=== PATIENT | male | born 1950 | race Hispanic/Latino ===

== ENCOUNTER 2020-09-05 15:23 | Inpatient (IN) | payer MEDICARE ==
[~2020-09-05] VITALS: Ht 190.5 cm; Wt 86.2 kg
[2020-09-05 16:54] LABS: BASOPHILS # (AUTO) 0.1 (0.0-0.1); BASOPHILS % 0.5 % (0.0-1.0); EOSINOPHILS # (AUTO) 0.1 (0.0-0.4); EOSINOPHILS % 0.4 % (0.0-6.0); HEMATOCRIT 41.5 % (38.2-49.6); HEMOGLOBIN 13.3 g/dL (14.0-18.0); LYMPHOCYTES # (AUTO) 0.9 (1.0-3.2); LYMPHOCYTES % 6.5 % (18.0-39.1); MEAN CORPUSCULAR HEMOGLOBIN 27.2 pg (28-32); MEAN CORPUSCULAR VOLUME 84.9 fL (81-99); MONOCYTES # (AUTO) 1.5 (0.2-0.8); MONOCYTES % 11.1 % (4.4-11.3); NEUTROPHILS # (AUTO) 10.7 (2.1-6.9); NEUTROPHILS % 80.4 % (38.7-80.0); PLATELET COUNT 352 x10e3/uL (140-360); RED BLOOD COUNT 4.89 x10e6/uL (4.3-5.7); RED CELL DISTRIBUTION WIDTH 12.5 % (11.7-14.4)
[2020-09-05] MEDS ORDERED: ASPIRIN 81 MG CHEW TAB PO ONE (17:00)
[2020-09-05 17:17] LABS: ALANINE AMINOTRANSFERASE 62 IU/L (0-55); ALBUMIN 2.9 g/dL (3.5-5.0); ALBUMIN/GLOBULIN RATIO 0.6 (0.8-2.0); ALKALINE PHOSPHATASE 71 IU/L (40-150); ANION GAP 14.4 mmol/L (8-16); BLOOD UREA NITROGEN 15 mg/dL (7-26); BUN/CREATININE RATIO 16 (6-25); CARBON DIOXIDE 24 mmol/L (22-29); CHLORIDE 97 mmol/L (98-107); CREATINE KINASE 53 IU/L (30-200); CREATININE, SERUM 0.96 mg/dL (0.72-1.25); EST GLOMERULAR FILTRATION RATE > 60 ML/MIN (60-); GLUCOSE 110 mg/dL (74-118); POTASSIUM 4.4 mmol/L (3.5-5.1); SODIUM 131 mmol/L (136-145)
[2020-09-05] MEDS: ENOXAPARIN INJ 80 MG/0.8 ML SYR SC SCH (19:45)
[2020-09-05] MEDS ORDERED: ENOXAPARIN INJ 80 MG/0.8 ML SYR SC ONE (19:48)
[2020-09-05] MEDS ORDERED: SODIUM CHLORIDE 0.9% 50ML 50 ML ONE (19:50)
[2020-09-05] MEDS ORDERED: IOPAMIDOL 370 MG/ML 200 ML INFUS..BTL INJ ONE (19:50)
[2020-09-05 21:18] LABS: CLARITY,URINE SL CLOUDY (CLEAR); COLOR,URINE AMBER (YELLOW); KETONES,URINE 1+ (NEGATIVE); LEUKOCYTE ESTERASE ,URINE NEGATIVE (NEGATIVE); NITRITE,URINE NEGATIVE (NEGATIVE); PROTEIN,URINE DIPSTICK TRACE (NEGATIVE); URINE UROBILINOGEN 0.2 mg/dL (0.2 - 1)
[2020-09-05 21:29] LABS: BACTERIA,URINE MANY /HPF; EPITHELIAL CELLS,URINE FEW /LPF; MUCUS,URINE MANY (RARE)
[2020-09-05] MEDS ORDERED: SODIUM CHLORIDE 0.9% 1000ML 1,000 ML IV STA (21:44)
[2020-09-05] MEDS ORDERED: CEFTRIAXONE SOD 1 GM/NS 50 ML 50 ML IV ONE ×2 (21:45→21:53)
[2020-09-05] MEDS ORDERED: SODIUM CHLORIDE 0.9% 1000ML 1,000 ML ONE (21:53)
[2020-09-06] VITALS (9 sets, daily range): BP systolic 93–134; BP diastolic 58–90
[2020-09-06] MEDS ORDERED: VANCOMYCIN HCL 1GM/NS 250 ML BAG IV SCH
[2020-09-06] MEDS ORDERED: CEFTRIAXONE SOD 1 GRAM/0.9% SOD CHL 50ML BAG IV SCH
[2020-09-06 05:10] LABS: BASOPHILS # (AUTO) 0.1 (0.0-0.1); BASOPHILS % 0.6 % (0.0-1.0); EOSINOPHILS # (AUTO) 0.1 (0.0-0.4); EOSINOPHILS % 1.4 % (0.0-6.0); HEMATOCRIT 36.7 % (38.2-49.6); HEMOGLOBIN 11.9 g/dL (14.0-18.0); LYMPHOCYTES # (AUTO) 0.9 (1.0-3.2); MEAN CORPUSCULAR HEMOGLOBIN 27.4 pg (28-32); MEAN CORPUSCULAR HGB CONC 32.4 g/dL (31-35); MEAN CORPUSCULAR VOLUME 84.6 fL (81-99); MONOCYTES # (AUTO) 1.4 (0.2-0.8); MONOCYTES % 13.8 % (4.4-11.3); NEUTROPHILS # (AUTO) 7.6 (2.1-6.9); NEUTROPHILS % 74.2 % (38.7-80.0); PLATELET COUNT 312 x10e3/uL (140-360); RED BLOOD COUNT 4.34 x10e6/uL (4.3-5.7); RED CELL DISTRIBUTION WIDTH 12.5 % (11.7-14.4)
[2020-09-06 05:33] LABS: ALANINE AMINOTRANSFERASE 49 IU/L (0-55); ALBUMIN 2.3 g/dL (3.5-5.0); ALBUMIN/GLOBULIN RATIO 0.5 (0.8-2.0); ALKALINE PHOSPHATASE 59 IU/L (40-150); ANION GAP 10.9 mmol/L (8-16); BLOOD UREA NITROGEN 15 mg/dL (7-26); BUN/CREATININE RATIO 19 (6-25); CALCIUM 8.5 mg/dL (8.4-10.2); CARBON DIOXIDE 24 mmol/L (22-29); CHLORIDE 101 mmol/L (98-107); CREATININE, SERUM 0.79 mg/dL (0.72-1.25); EST GLOMERULAR FILTRATION RATE > 60 ML/MIN (60-); GLUCOSE 110 mg/dL (74-118); POTASSIUM 3.9 mmol/L (3.5-5.1); SODIUM 132 mmol/L (136-145)
[2020-09-06] MEDS: ENOXAPARIN INJ 80 MG/0.8 ML SYR SC SCH (08:19)
[2020-09-06] MEDS: AZITHROMYCIN 500MG/NS 250 ML 250 ML IV SCH (08:39)
[2020-09-06] MEDS ORDERED: ENOXAPARIN INJ 80 MG/0.8 ML SYR SC SCH (09:00)
[2020-09-06 09:13] LABS: CREATINE KINASE 41 IU/L (30-200)
[2020-09-06 13:17] LABS: CREATINE KINASE 39 IU/L (30-200)
[2020-09-06] MEDS: ENOXAPARIN SOD INJ 40 MG/0.4 ML SYR SC SCH (20:42)
[2020-09-06] MEDS: CEFTRIAXONE SOD 1 GM/NS 50 ML 50 ML IV SCH (20:42)
[2020-09-07] VITALS (9 sets, daily range): BP systolic 105–121; BP diastolic 61–80
[2020-09-07] MEDS: AZITHROMYCIN 500MG/NS 250 ML 250 ML IV SCH (14:13)
[2020-09-07] MEDS: ENOXAPARIN SOD INJ 40 MG/0.4 ML SYR SC SCH ×2 (14:28→22:18)
[2020-09-07] MEDS: CEFTRIAXONE SOD 1 GM/NS 50 ML 50 ML IV SCH (22:19)
[2020-09-08] VITALS (10 sets, daily range): BP systolic 90–127; BP diastolic 62–85
[2020-09-08] MEDS: AZITHROMYCIN 500MG/NS 250 ML 250 ML IV SCH (09:24)
[2020-09-08] MEDS: ENOXAPARIN SOD INJ 40 MG/0.4 ML SYR SC SCH ×2 (09:24→21:00)
[2020-09-08] MEDS: CEFTRIAXONE SOD 1 GM/NS 50 ML 50 ML IV SCH (22:00)
[2020-09-08] MEDS ORDERED: SODIUM CHLORIDE 0.9% 500ML 500 ML ONE (22:27)
[2020-09-09] VITALS (7 sets, daily range): BP systolic 96–137; BP diastolic 61–90
[2020-09-09] MEDS: ENOXAPARIN SOD INJ 40 MG/0.4 ML SYR SC SCH (09:40)
[2020-09-09] MEDS: AZITHROMYCIN 500MG/NS 250 ML 250 ML IV SCH (09:40)
[2020-09-09] MEDS ORDERED: AZITHROMYCIN250 MG PO (17:51)
[2020-09-09] MEDS ORDERED: MEDROL8 MG PO (17:56)
[2020-09-10] MEDS ORDERED: AZITHROMYCIN 250 MG TAB PO SCH (09:00)
== END 2020-09-09 19:25 | disposition home or self-care (01) | DRG 195 ==
LOC: ER 16:10 → ERHOLD 09-06 00:07 → IMCU 09-06 00:11 → MED/SURG3 09-08 20:36
PROVIDERS: ADMIT Internal Medicine; ATTEND Internal Medicine
DX: J15.9 Unspecified bacterial pneumonia (principal); E88.09 Other disorders of plasma-protein metabolism, not elsewhere classified; D50.0 Iron deficiency anemia secondary to blood loss (chronic); Z20.828 Contact with and (suspected) exposure to other viral communicable diseases; Z87.891 Personal history of nicotine dependence; M06.9 Rheumatoid arthritis, unspecified
CPT/HCPCS: 36415; 71045; 71260; 80053; 81001; 82550; 82553; 83605; 83880; 84145; 84484; 85025; 85379; 86021; 86039; 86140; 86431; 86663; 86664; 86665; 86738; 86777; 86778; 87040; 87400; 87449; 93005; 99284; J0456; J0696; J1650; J3370; J7030; J7040; Q9967; U0002

== ENCOUNTER 2020-09-26 13:57 | Inpatient (IN) | payer MEDICARE ==
[~2020-09-26] VITALS: Ht 195.6 cm; Wt 95.7 kg
[~2020-09-26 13:57] MED LIST: AZITHROMYCIN250 MG PO; ETOMIDATE 2 MG/ML 10 ML INJ IV ONE; MEDROL8 MG PO; MIDAZOLAM HCL 2 MG/2 ML VIAL ONE; SUCCINYLCHOLINE CHLORIDE 20 MG/ML 10ML VIAL ONE; VECURONIUM BROMIDE FOR INJ 20 MG VIAL ONE; WATER STERILE 10 ML VIAL ONE
[2020-09-26 14:55] LABS: BASOPHILS # (AUTO) 0.1 (0.0-0.1); BASOPHILS % 0.4 % (0.0-1.0); EOSINOPHILS # (AUTO) 0.1 (0.0-0.4); EOSINOPHILS % 0.3 % (0.0-6.0); HEMATOCRIT 39.3 % (38.2-49.6); HEMOGLOBIN 12.5 g/dL (14.0-18.0); LYMPHOCYTES # (AUTO) 1.3 (1.0-3.2); LYMPHOCYTES % 7.3 % (18.0-39.1); MEAN CORPUSCULAR HEMOGLOBIN 26.4 pg (28-32); MEAN CORPUSCULAR HGB CONC 31.8 g/dL (31-35); MEAN CORPUSCULAR VOLUME 83.1 fL (81-99); MONOCYTES # (AUTO) 1.6 (0.2-0.8); MONOCYTES % 8.7 % (4.4-11.3); NEUTROPHILS # (AUTO) 14.5 (2.1-6.9); NEUTROPHILS % 80.7 % (38.7-80.0); PLATELET COUNT 351 x10e3/uL (140-360); RED BLOOD COUNT 4.73 x10e6/uL (4.3-5.7); RED CELL DISTRIBUTION WIDTH 14.1 % (11.7-14.4)
[2020-09-26 15:13] LABS: ALANINE AMINOTRANSFERASE 96 IU/L (0-55); ALBUMIN 2.2 g/dL (3.5-5.0); ALBUMIN/GLOBULIN RATIO 0.5 (0.8-2.0); ALKALINE PHOSPHATASE 146 IU/L (40-150); BLOOD UREA NITROGEN 27 mg/dL (7-26); BUN/CREATININE RATIO 36 (6-25); CALCIUM 9.2 mg/dL (8.4-10.2); CARBON DIOXIDE 21 mmol/L (22-29); CHLORIDE 102 mmol/L (98-107); CREATININE, SERUM 0.75 mg/dL (0.72-1.25); EST GLOMERULAR FILTRATION RATE > 60 ML/MIN (60-); GLUCOSE 129 mg/dL (74-118); SODIUM 134 mmol/L (136-145)
[2020-09-26] MEDS ORDERED: IOPAMIDOL 370 MG/ML 200 ML INFUS..BTL INJ ONE (17:20)
[2020-09-26] MEDS ORDERED: SODIUM CHLORIDE 0.9% 50ML 50 ML ONE (17:20)
[2020-09-26] MEDS ORDERED: VANCOMYCIN HCL 1GM/NS 250 ML BAG IV SCH (18:15)
[2020-09-26] MEDS ORDERED: AZITHROMYCIN 500MG/SOD CHL 0.9% 250ML BAG IV SCH (18:15)
[2020-09-26] MEDS ORDERED: CEFTRIAXONE SOD 1 GRAM/0.9% SOD CHL 50ML BAG IV SCH (18:15)
[2020-09-26] MEDS ORDERED: SODIUM CHLORIDE FLUSH 10 ML SYR INJ PRN (18:15)
[2020-09-26] MEDS ORDERED: CEFTRIAXONE SOD 1 GM/NS 50 ML 50 ML IV SCH (18:30)
[2020-09-26] MEDS: ALBUTEROL SULF 0.083% NEB SOLN 3 ML NEB NEB SCH (19:00)
[2020-09-26] MEDS: IPRATROPIUM BROMIDE 0.02% 2.5 ML NEB NEB SCH (19:00)
[2020-09-26] MEDS: AZITHROMYCIN 500MG/NS 250 ML 250 ML IV SCH (19:05)
[2020-09-26] MEDS: VANCOMYCIN 1GM/NS 250 ML 250 ML IV SCH (20:22)
[2020-09-27] MEDS: ALBUTEROL SULF 0.083% NEB SOLN 3 ML NEB NEB SCH ×7 (01:15→23:15)
[2020-09-27] MEDS: IPRATROPIUM BROMIDE 0.02% 2.5 ML NEB NEB SCH ×4 (01:15→18:30)
[2020-09-27 05:54] LABS: BASOPHILS # (AUTO) 0.1 (0.0-0.1); BASOPHILS % 0.3 % (0.0-1.0); EOSINOPHILS # (AUTO) 0.1 (0.0-0.4); EOSINOPHILS % 0.3 % (0.0-6.0); HEMATOCRIT 39.7 % (38.2-49.6); HEMOGLOBIN 12.6 g/dL (14.0-18.0); LYMPHOCYTES # (AUTO) 1.1 (1.0-3.2); LYMPHOCYTES % 6.3 % (18.0-39.1); MEAN CORPUSCULAR HEMOGLOBIN 26.4 pg (28-32); MEAN CORPUSCULAR HGB CONC 31.7 g/dL (31-35); MEAN CORPUSCULAR VOLUME 83.1 fL (81-99); MONOCYTES # (AUTO) 1.9 (0.2-0.8); MONOCYTES % 10.7 % (4.4-11.3); NEUTROPHILS # (AUTO) 14.3 (2.1-6.9); NEUTROPHILS % 80.6 % (38.7-80.0); PLATELET COUNT 324 x10e3/uL (140-360); RED BLOOD COUNT 4.78 x10e6/uL (4.3-5.7); RED CELL DISTRIBUTION WIDTH 14.3 % (11.7-14.4)
[2020-09-27 06:31] LABS: ALANINE AMINOTRANSFERASE 81 IU/L (0-55); ALBUMIN 1.9 g/dL (3.5-5.0); ALBUMIN/GLOBULIN RATIO 0.4 (0.8-2.0); ALKALINE PHOSPHATASE 148 IU/L (40-150); ANION GAP 14.4 mmol/L (8-16); BLOOD UREA NITROGEN 18 mg/dL (7-26); BUN/CREATININE RATIO 26 (6-25); CALCIUM 8.8 mg/dL (8.4-10.2); CARBON DIOXIDE 21 mmol/L (22-29); CHLORIDE 100 mmol/L (98-107); CREATININE, SERUM 0.69 mg/dL (0.72-1.25); EST GLOMERULAR FILTRATION RATE > 60 ML/MIN (60-); GLUCOSE 97 mg/dL (74-118); MAGNESIUM 1.9 MG/DL (1.3-2.1); POTASSIUM 4.4 mmol/L (3.5-5.1); SODIUM 131 mmol/L (136-145)
[2020-09-27 06:57] LABS: CREATINE KINASE MB 0.7 ng/mL (0-5.0)
[2020-09-27 10:30] LABS: CREATINE KINASE MB 0.6 ng/mL (0-5.0)
[2020-09-27] MEDS: CEFEPIME 2 GM/NS 0.9% 100 ML 100 ML IV SCH ×2 (11:10→23:00)
[2020-09-27 13:21] VITALS: BP 118/70
[2020-09-27 13:29] VITALS: BP 118/70
[2020-09-27 13:30] VITALS: BP 118/70
[2020-09-27] MEDS ORDERED: PREDNISONE20 MG PO (14:31)
[2020-09-27 16:41] VITALS: BP 117/66
[2020-09-27] MEDS ORDERED: SODIUM CHLORIDE 0.9% 250ML 250 ML ONE (18:13)
[2020-09-27] MEDS: AZITHROMYCIN 500MG/NS 250 ML 250 ML IV SCH (18:19)
[2020-09-27] MEDS ORDERED: SODIUM CHLORIDE 0.9% 500ML 500 ML IV ONE (18:30)
[2020-09-27 20:00] VITALS: BP 112/67
[2020-09-27] MEDS: VANCOMYCIN 1GM/NS 250 ML 250 ML IV SCH (21:33)
[2020-09-28] VITALS (7 sets, daily range): BP systolic 97–117; BP diastolic 54–70
[2020-09-28] MEDS: IPRATROPIUM BROMIDE 0.02% 2.5 ML NEB NEB SCH ×4 (03:15→20:25)
[2020-09-28] MEDS: ALBUTEROL SULF 0.083% NEB SOLN 3 ML NEB NEB SCH ×6 (03:15→23:20)
[2020-09-28 06:20] LABS: BASOPHILS % 0.2 % (0.0-1.0); EOSINOPHILS % 0.2 % (0.0-6.0); HEMATOCRIT 35.3 % (38.2-49.6); HEMOGLOBIN 11.4 g/dL (14.0-18.0); LYMPHOCYTES % 5.9 % (18.0-39.1); MEAN CORPUSCULAR HGB CONC 32.3 g/dL (31-35); MEAN CORPUSCULAR VOLUME 83.6 fL (81-99); MONOCYTES # (AUTO) 1.8 (0.2-0.8); NEUTROPHILS # (AUTO) 13.4 (2.1-6.9); NEUTROPHILS % 81.1 % (38.7-80.0); PLATELET COUNT 268 x10e3/uL (140-360); RED BLOOD COUNT 4.22 x10e6/uL (4.3-5.7); RED CELL DISTRIBUTION WIDTH 14.3 % (11.7-14.4)
[2020-09-28 06:28] LABS: INR 1.13; PROTHROMBIN TIME 15.1 seconds (11.9-14.5)
[2020-09-28 06:29] LABS: PARTIAL THROMBOPLASTIN TIME 44.5 seconds (23.8-35.5)
[2020-09-28 06:31] LABS: CALCIUM IONIZED 1.1 mmol/L (1.09-1.30)
[2020-09-28 06:52] LABS: ALANINE AMINOTRANSFERASE 56 IU/L (0-55); ALBUMIN 1.7 g/dL (3.5-5.0); ALBUMIN/GLOBULIN RATIO 0.4 (0.8-2.0); ALKALINE PHOSPHATASE 135 IU/L (40-150); ANION GAP 13.2 mmol/L (8-16); BLOOD UREA NITROGEN 17 mg/dL (7-26); BUN/CREATININE RATIO 24 (6-25); CALCIUM 8.4 mg/dL (8.4-10.2); CARBON DIOXIDE 23 mmol/L (22-29); CHLORIDE 101 mmol/L (98-107); CREATININE, SERUM 0.71 mg/dL (0.72-1.25); EST GLOMERULAR FILTRATION RATE > 60 ML/MIN (60-); GLUCOSE 92 mg/dL (74-118); MAGNESIUM 1.9 MG/DL (1.3-2.1); POTASSIUM 4.2 mmol/L (3.5-5.1); SODIUM 133 mmol/L (136-145)
[2020-09-28] MEDS ORDERED: LIDOCAINE HCL 4% 50 ML BTL ONE (09:25)
[2020-09-28] MEDS: CEFEPIME 2 GM/NS 0.9% 100 ML 100 ML IV SCH ×2 (11:00→23:45)
[2020-09-28] MEDS ORDERED: MIDAZOLAM HCL 2 MG/2 ML VIAL ONE (12:56)
[2020-09-28] MEDS ORDERED: FENTANYL CITRATE/PF 100MCG/2 ML INJ ONE (12:56)
[2020-09-28] MEDS ORDERED: SODIUM CHLORIDE 0.9% 1000ML 1,000 ML IV SCH (13:00)
[2020-09-28] MEDS ORDERED: PROPOFOL IV EMULSION 10 MG/ML 20 ML VIAL ONE (14:20)
[2020-09-28] MEDS ORDERED: LIDOCAINE HCL 2% LOCAL INJ 5 ML SDV VIAL INJ ONE (14:20)
[2020-09-28] MEDS: AZITHROMYCIN 500MG/NS 250 ML 250 ML IV SCH (17:40)
[2020-09-28] MEDS: VANCOMYCIN 1GM/NS 250 ML 250 ML IV SCH (20:34)
[2020-09-28] MEDS: ACETAMINOPHEN 325 MG TAB PO PRN (23:50)
[2020-09-29] VITALS (8 sets, daily range): BP systolic 94–133; BP diastolic 58–72
[2020-09-29] MEDS: IPRATROPIUM BROMIDE 0.02% 2.5 ML NEB NEB SCH ×4 (01:00→19:35)
[2020-09-29] MEDS: ALBUTEROL SULF 0.083% NEB SOLN 3 ML NEB NEB SCH ×5 (03:00→19:35)
[2020-09-29 06:32] LABS: BASOPHILS % 0.3 % (0.0-1.0); EOSINOPHILS # (AUTO) 0.1 (0.0-0.4); EOSINOPHILS % 0.3 % (0.0-6.0); HEMATOCRIT 35.6 % (38.2-49.6); HEMOGLOBIN 11.1 g/dL (14.0-18.0); LYMPHOCYTES % 6.4 % (18.0-39.1); MEAN CORPUSCULAR HEMOGLOBIN 26.4 pg (28-32); MEAN CORPUSCULAR HGB CONC 31.2 g/dL (31-35); MEAN CORPUSCULAR VOLUME 84.8 fL (81-99); MONOCYTES # (AUTO) 1.6 (0.2-0.8); MONOCYTES % 10.3 % (4.4-11.3); NEUTROPHILS # (AUTO) 12.6 (2.1-6.9); PLATELET COUNT 239 x10e3/uL (140-360); RED CELL DISTRIBUTION WIDTH 14.5 % (11.7-14.4)
[2020-09-29 06:43] LABS: CALCIUM IONIZED 1.1 mmol/L (1.09-1.30)
[2020-09-29 06:52] LABS: ALANINE AMINOTRANSFERASE 54 IU/L (0-55); ALBUMIN 1.6 g/dL (3.5-5.0); ALBUMIN/GLOBULIN RATIO 0.4 (0.8-2.0); ALKALINE PHOSPHATASE 144 IU/L (40-150); ANION GAP 11.9 mmol/L (8-16); BLOOD UREA NITROGEN 16 mg/dL (7-26); BUN/CREATININE RATIO 24 (6-25); CALCIUM 8.3 mg/dL (8.4-10.2); CARBON DIOXIDE 23 mmol/L (22-29); CHLORIDE 105 mmol/L (98-107); CREATININE, SERUM 0.66 mg/dL (0.72-1.25); EST GLOMERULAR FILTRATION RATE > 60 ML/MIN (60-); GLUCOSE 104 mg/dL (74-118); POTASSIUM 3.9 mmol/L (3.5-5.1); SODIUM 136 mmol/L (136-145)
[2020-09-29] MEDS ORDERED: SODIUM CHLORIDE 0.9% 250ML 250 ML ONE (10:14)
[2020-09-29] MEDS: CEFEPIME 2 GM/NS 0.9% 100 ML 100 ML IV SCH ×2 (10:22→22:51)
[2020-09-29] MEDS ORDERED: SODIUM CHLORIDE 0.9% 1000ML 1,000 ML IV ONE (18:00)
[2020-09-29] MEDS: ACETAMINOPHEN 325 MG TAB PO PRN ×2 (18:10→22:51)
[2020-09-29] MEDS: VANCOMYCIN 1GM/NS 250 ML 250 ML IV SCH (21:19)
[2020-09-29] MEDS: SODIUM CHLORIDE 0.9% 1000ML 1,000 ML IV SCH (21:20)
[2020-09-30] VITALS (7 sets, daily range): BP systolic 111–136; BP diastolic 68–77
[2020-09-30] MEDS: ALBUTEROL SULF 0.083% NEB SOLN 3 ML NEB NEB SCH ×7 (00:05→23:55)
[2020-09-30] MEDS: IPRATROPIUM BROMIDE 0.02% 2.5 ML NEB NEB SCH ×5 (00:05→23:55)
[2020-09-30] MEDS: SODIUM CHLORIDE 0.9% 1000ML 1,000 ML IV SCH ×2 (04:50→14:46)
[2020-09-30 05:32] LABS: BASOPHILS % 0.3 % (0.0-1.0); EOSINOPHILS # (AUTO) 0.1 (0.0-0.4); HEMATOCRIT 33.5 % (38.2-49.6); HEMOGLOBIN 10.4 g/dL (14.0-18.0); LYMPHOCYTES # (AUTO) 0.7 (1.0-3.2); LYMPHOCYTES % 4.8 % (18.0-39.1); MEAN CORPUSCULAR HEMOGLOBIN 26.2 pg (28-32); MEAN CORPUSCULAR VOLUME 84.4 fL (81-99); MONOCYTES # (AUTO) 1.2 (0.2-0.8); MONOCYTES % 9.2 % (4.4-11.3); NEUTROPHILS # (AUTO) 11.2 (2.1-6.9); NEUTROPHILS % 83.4 % (38.7-80.0); PLATELET COUNT 241 x10e3/uL (140-360); RED BLOOD COUNT 3.97 x10e6/uL (4.3-5.7); RED CELL DISTRIBUTION WIDTH 14.4 % (11.7-14.4)
[2020-09-30 05:55] LABS: ALANINE AMINOTRANSFERASE 72 IU/L (0-55); ALBUMIN 1.5 g/dL (3.5-5.0); ALBUMIN/GLOBULIN RATIO 0.4 (0.8-2.0); ALKALINE PHOSPHATASE 141 IU/L (40-150); ANION GAP 9.7 mmol/L (8-16); BLOOD UREA NITROGEN 11 mg/dL (7-26); BUN/CREATININE RATIO 17 (6-25); CALCIUM 8.2 mg/dL (8.4-10.2); CARBON DIOXIDE 23 mmol/L (22-29); CHLORIDE 103 mmol/L (98-107); CREATININE, SERUM 0.63 mg/dL (0.72-1.25); EST GLOMERULAR FILTRATION RATE > 60 ML/MIN (60-); GLUCOSE 113 mg/dL (74-118); POTASSIUM 3.7 mmol/L (3.5-5.1); SODIUM 132 mmol/L (136-145)
[2020-09-30] MEDS: CEFEPIME 2 GM/NS 0.9% 100 ML 100 ML IV SCH ×2 (12:52→23:00)
[2020-09-30] MEDS ORDERED: ENOXAPARIN SOD INJ 40 MG/0.4 ML SYR SC NR (14:30)
[2020-09-30] MEDS: ACETAMINOPHEN 325 MG TAB PO PRN (14:45)
[2020-09-30] MEDS: VANCOMYCIN 1GM/NS 250 ML 250 ML IV SCH (20:00)
[2020-10-01] VITALS (9 sets, daily range): BP systolic 119–167; BP diastolic 60–97
[2020-10-01] MEDS: SODIUM CHLORIDE 0.9% 1000ML 1,000 ML IV SCH ×2 (00:50→10:43)
[2020-10-01] MEDS: ALBUTEROL SULF 0.083% NEB SOLN 3 ML NEB NEB SCH ×6 (03:05→23:45)
[2020-10-01 05:54] LABS: BASOPHILS % 0.3 % (0.0-1.0); EOSINOPHILS # (AUTO) 0.1 (0.0-0.4); HEMATOCRIT 33.4 % (38.2-49.6); HEMOGLOBIN 10.5 g/dL (14.0-18.0); LYMPHOCYTES # (AUTO) 0.8 (1.0-3.2); LYMPHOCYTES % 5.3 % (18.0-39.1); MEAN CORPUSCULAR HEMOGLOBIN 26.4 pg (28-32); MEAN CORPUSCULAR HGB CONC 31.4 g/dL (31-35); MEAN CORPUSCULAR VOLUME 83.9 fL (81-99); MONOCYTES # (AUTO) 1.2 (0.2-0.8); MONOCYTES % 8.6 % (4.4-11.3); NEUTROPHILS % 83.3 % (38.7-80.0); PLATELET COUNT 278 x10e3/uL (140-360); RED BLOOD COUNT 3.98 x10e6/uL (4.3-5.7); RED CELL DISTRIBUTION WIDTH 14.3 % (11.7-14.4)
[2020-10-01 06:18] LABS: ALANINE AMINOTRANSFERASE 83 IU/L (0-55); ALBUMIN 1.5 g/dL (3.5-5.0); ALBUMIN/GLOBULIN RATIO 0.4 (0.8-2.0); ALKALINE PHOSPHATASE 145 IU/L (40-150); ANION GAP 12.8 mmol/L (8-16); BLOOD UREA NITROGEN 10 mg/dL (7-26); BUN/CREATININE RATIO 15 (6-25); CALCIUM 8.2 mg/dL (8.4-10.2); CARBON DIOXIDE 23 mmol/L (22-29); CHLORIDE 100 mmol/L (98-107); CREATININE, SERUM 0.66 mg/dL (0.72-1.25); EST GLOMERULAR FILTRATION RATE > 60 ML/MIN (60-); GLUCOSE 106 mg/dL (74-118); POTASSIUM 3.8 mmol/L (3.5-5.1); SODIUM 132 mmol/L (136-145)
[2020-10-01] MEDS: IPRATROPIUM BROMIDE 0.02% 2.5 ML NEB NEB SCH ×4 (06:45→23:45)
[2020-10-01 06:54] LABS: % IRON SATURATION 11 % (15-50); IRON 12 ug/dL (65-175); TOTAL IRON BINDING CAPACITY 111 ug/dL (261-478); TRANSFERRIN 79 mg/dL (174-364)
[2020-10-01 07:04] LABS: FERRITIN > 2000.00 ng/mL (21.81-274.66)
[2020-10-01] MEDS: CEFEPIME 2 GM/NS 0.9% 100 ML 100 ML IV SCH ×2 (10:42→22:44)
[2020-10-01] MEDS: ACETAMINOPHEN 325 MG TAB PO PRN (10:42)
[2020-10-01] MEDS: ENOXAPARIN SOD INJ 40 MG/0.4 ML SYR SC SCH (17:17)
[2020-10-01] MEDS ORDERED: FUROSEMIDE INJ 10 MG/ML 4 ML VIAL IV ONE (17:45)
[2020-10-01] MEDS ORDERED: BISACODYL 10 MG SUPP PR PRN (19:45)
[2020-10-01] MEDS: VANCOMYCIN 1GM/NS 250 ML 250 ML IV SCH (20:50)
[2020-10-02] VITALS (9 sets, daily range): BP systolic 78–137; BP diastolic 58–78
[2020-10-02] MEDS: IPRATROPIUM BROMIDE 0.02% 2.5 ML NEB NEB SCH ×4 (01:00→19:20)
[2020-10-02] MEDS: ALBUTEROL SULF 0.083% NEB SOLN 3 ML NEB NEB SCH ×5 (03:00→19:20)
[2020-10-02 06:21] LABS: BASOPHILS # (AUTO) 0.1 (0.0-0.1); BASOPHILS % 0.3 % (0.0-1.0); EOSINOPHILS % 0.2 % (0.0-6.0); HEMATOCRIT 35.2 % (38.2-49.6); LYMPHOCYTES # (AUTO) 0.9 (1.0-3.2); LYMPHOCYTES % 5.1 % (18.0-39.1); MEAN CORPUSCULAR HEMOGLOBIN 26.3 pg (28-32); MEAN CORPUSCULAR HGB CONC 31.3 g/dL (31-35); MONOCYTES # (AUTO) 1.6 (0.2-0.8); MONOCYTES % 8.6 % (4.4-11.3); NEUTROPHILS # (AUTO) 15.6 (2.1-6.9); NEUTROPHILS % 84.1 % (38.7-80.0); PLATELET COUNT 288 x10e3/uL (140-360); RED BLOOD COUNT 4.19 x10e6/uL (4.3-5.7); RED CELL DISTRIBUTION WIDTH 14.4 % (11.7-14.4)
[2020-10-02 06:44] LABS: ALANINE AMINOTRANSFERASE 107 IU/L (0-55); ALBUMIN 1.6 g/dL (3.5-5.0); ALBUMIN/GLOBULIN RATIO 0.3 (0.8-2.0); ALKALINE PHOSPHATASE 190 IU/L (40-150); ANION GAP 13.5 mmol/L (8-16); BLOOD UREA NITROGEN 15 mg/dL (7-26); BUN/CREATININE RATIO 21 (6-25); CALCIUM 8.6 mg/dL (8.4-10.2); CARBON DIOXIDE 25 mmol/L (22-29); CHLORIDE 99 mmol/L (98-107); CREATININE, SERUM 0.71 mg/dL (0.72-1.25); EST GLOMERULAR FILTRATION RATE > 60 ML/MIN (60-); GLUCOSE 127 mg/dL (74-118); POTASSIUM 3.5 mmol/L (3.5-5.1); SODIUM 134 mmol/L (136-145)
[2020-10-02] MEDS: PREDNISONE 20 MG TAB PO SCH (09:29)
[2020-10-02] MEDS: CEFEPIME 2 GM/NS 0.9% 100 ML 100 ML IV SCH ×2 (11:00→22:35)
[2020-10-02] MEDS ORDERED: LACTATED RINGER'S 1,000 ML INJ ONE (13:45)
[2020-10-02] MEDS: ENOXAPARIN SOD INJ 40 MG/0.4 ML SYR SC SCH (17:23)
[2020-10-02 18:14] LABS: ABG HCO3 28 mmol/L (22-26); ABG PCO2 36 mmHg (35-45); ABG PH 7.48 (7.35-7.45); ABG PO2 61 mmHg (80-105); ABG TCO2 29
[2020-10-02] MEDS: VANCOMYCIN 1GM/NS 250 ML 250 ML IV SCH (19:48)
[2020-10-02] MEDS ORDERED: SODIUM CHLORIDE 0.9% 250ML 250 ML ONE (22:06)
[2020-10-03] VITALS (24 sets, daily range): BP systolic 76–136; BP diastolic 48–78
[2020-10-03] MEDS: CEFEPIME 2 GM/NS 0.9% 100 ML 100 ML IV SCH ×2 (00:50→15:32)
[2020-10-03] MEDS: IPRATROPIUM BROMIDE 0.02% 2.5 ML NEB NEB SCH ×3 (01:15→10:55)
[2020-10-03] MEDS: ALBUTEROL SULF 0.083% NEB SOLN 3 ML NEB NEB SCH ×3 (02:18→10:55)
[2020-10-03 05:44] LABS: ABG HCO3 26 mmol/L (22-26); ABG PCO2 31 mmHg (35-45); ABG PH 7.53 (7.35-7.45); ABG PO2 94 mmHg (80-105); ABG TCO2 27
[2020-10-03 06:24] LABS: BASOPHILS # (AUTO) 0.1 (0.0-0.1); BASOPHILS % 0.2 % (0.0-1.0); EOSINOPHILS # (AUTO) 0.1 (0.0-0.4); EOSINOPHILS % 0.6 % (0.0-6.0); HEMATOCRIT 31.7 % (38.2-49.6); HEMOGLOBIN 10.1 g/dL (14.0-18.0); LYMPHOCYTES # (AUTO) 0.6 (1.0-3.2); LYMPHOCYTES % 3.1 % (18.0-39.1); MEAN CORPUSCULAR HEMOGLOBIN 26.4 pg (28-32); MEAN CORPUSCULAR HGB CONC 31.9 g/dL (31-35); MONOCYTES # (AUTO) 1.4 (0.2-0.8); MONOCYTES % 7.1 % (4.4-11.3); NEUTROPHILS # (AUTO) 17.6 (2.1-6.9); PLATELET COUNT 302 x10e3/uL (140-360); RED BLOOD COUNT 3.82 x10e6/uL (4.3-5.7); RED CELL DISTRIBUTION WIDTH 14.7 % (11.7-14.4)
[2020-10-03 06:48] LABS: ALANINE AMINOTRANSFERASE 126 IU/L (0-55); ALBUMIN 1.6 g/dL (3.5-5.0); ALBUMIN/GLOBULIN RATIO 0.4 (0.8-2.0); ALKALINE PHOSPHATASE 152 IU/L (40-150); ANION GAP 13.6 mmol/L (8-16); BLOOD UREA NITROGEN 19 mg/dL (7-26); BUN/CREATININE RATIO 29 (6-25); CALCIUM 8.1 mg/dL (8.4-10.2); CARBON DIOXIDE 24 mmol/L (22-29); CHLORIDE 101 mmol/L (98-107); CREATININE, SERUM 0.66 mg/dL (0.72-1.25); EST GLOMERULAR FILTRATION RATE > 60 ML/MIN (60-); GLUCOSE 93 mg/dL (74-118); POTASSIUM 3.6 mmol/L (3.5-5.1); SODIUM 135 mmol/L (136-145)
[2020-10-03] MEDS: POLYETHYLENE GLYCOL 3350 17 GM PACK PO SCH (08:03)
[2020-10-03] MEDS: PREDNISONE 20 MG TAB PO SCH (08:28)
[2020-10-03] MEDS ORDERED: HEPARIN 25,000 UNIT 1,500 UNIT in DEXTROSE 5% 250ML 250 ML IV SCH ×2 (12:15→12:45)
[2020-10-03] MEDS ORDERED: LEVALBUTEROL HCL SOLN NEBU 0.63 MG/3 ML NEB INH PRN (12:15)
[2020-10-03] MEDS ORDERED: IPRATROPIUM BROMIDE 0.02% 2.5 ML NEB NEB PRN (12:15)
[2020-10-03] MEDS ORDERED: LACTATED RINGER'S 1,000 ML INJ ONE ×2 (12:15→20:30)
[2020-10-03] MEDS ORDERED: METHYLPREDNISOLONE SOD SUCC 125 MG/2ML VIAL IV SCH (13:00)
[2020-10-03] MEDS ORDERED: LACTATED RINGER'S 1,000 ML ONE (15:45)
[2020-10-03] MEDS ORDERED: SODIUM CHLORIDE 0.9% 50ML 50 ML ONE (16:23)
[2020-10-03] MEDS ORDERED: IOPAMIDOL 370 MG/ML 200 ML INFUS..BTL INJ ONE (16:23)
[2020-10-03] MEDS ORDERED: SODIUM CHLORIDE 0.9% 1000ML 1,000 ML ONE (17:08)
[2020-10-03] MEDS ORDERED: MIDAZOLAM HCL 5MG/ML 10ML VIAL 100 ML IV ONE (17:20)
[2020-10-03] MEDS ORDERED: FENTANYL 2000MCG/NS 250 250 ML ONE (17:20)
[2020-10-03] MEDS: FENTANYL 2000MCG/NS 250 250 ML IV PRN (18:40)
[2020-10-03] MEDS: MIDAZOLAM HCL 5MG/ML 10ML VIAL 100 ML IV PRN (18:40)
[2020-10-03] MEDS: ENOXAPARIN SOD INJ 40 MG/0.4 ML SYR SC SCH (18:42)
[2020-10-03] MEDS: VANCOMYCIN 1GM/NS 250 ML 250 ML IV SCH (20:32)
[2020-10-03] MEDS ORDERED: NOREPINEPHRINE 8 MG/D5W 250 ML 250 ML ONE (21:00)
[2020-10-03 23:14] LABS: ABG HCO3 30 mmol/L (22-26); ABG PCO2 47 mmHg (35-45); ABG PH 7.41 (7.35-7.45); ABG PO2 186 mmHg (80-105)
[2020-10-03 23:15] LABS: ABG TCO2 31
[2020-10-04] VITALS (41 sets, daily range): BP systolic 80–117; BP diastolic 46–66
[2020-10-04] MEDS: MIDAZOLAM HCL 5MG/ML 10ML VIAL 100 ML IV PRN ×2 (03:46→17:32)
[2020-10-04 05:29] LABS: BASOPHILS # (AUTO) 0.1 (0.0-0.1); BASOPHILS % 0.2 % (0.0-1.0); EOSINOPHILS # (AUTO) 0.1 (0.0-0.4); EOSINOPHILS % 0.6 % (0.0-6.0); HEMATOCRIT 29.4 % (38.2-49.6); HEMOGLOBIN 9.3 g/dL (14.0-18.0); LYMPHOCYTES # (AUTO) 0.8 (1.0-3.2); LYMPHOCYTES % 3.7 % (18.0-39.1); MEAN CORPUSCULAR HEMOGLOBIN 26.5 pg (28-32); MEAN CORPUSCULAR HGB CONC 31.6 g/dL (31-35); MEAN CORPUSCULAR VOLUME 83.8 fL (81-99); MONOCYTES # (AUTO) 0.8 (0.2-0.8); MONOCYTES % 3.7 % (4.4-11.3); NEUTROPHILS # (AUTO) 19.5 (2.1-6.9); NEUTROPHILS % 90.2 % (38.7-80.0); PLATELET COUNT 302 x10e3/uL (140-360); RED BLOOD COUNT 3.51 x10e6/uL (4.3-5.7); RED CELL DISTRIBUTION WIDTH 14.6 % (11.7-14.4)
[2020-10-04 05:53] LABS: ALANINE AMINOTRANSFERASE 180 IU/L (0-55); ALBUMIN 1.4 g/dL (3.5-5.0); ALBUMIN/GLOBULIN RATIO 0.3 (0.8-2.0); ALKALINE PHOSPHATASE 152 IU/L (40-150); ANION GAP 13.3 mmol/L (8-16); BLOOD UREA NITROGEN 22 mg/dL (7-26); BUN/CREATININE RATIO 34 (6-25); CALCIUM 8.5 mg/dL (8.4-10.2); CARBON DIOXIDE 25 mmol/L (22-29); CHLORIDE 102 mmol/L (98-107); CREATININE, SERUM 0.65 mg/dL (0.72-1.25); EST GLOMERULAR FILTRATION RATE > 60 ML/MIN (60-); GLUCOSE 143 mg/dL (74-118); POTASSIUM 4.3 mmol/L (3.5-5.1); SODIUM 136 mmol/L (136-145)
[2020-10-04] MEDS: FENTANYL 2000MCG/NS 250 250 ML IV PRN ×2 (06:49→20:55)
[2020-10-04] MEDS: POLYETHYLENE GLYCOL 3350 17 GM PACK PO SCH (08:05)
[2020-10-04] MEDS: VANCOMYCIN 1GM/NS 250 ML 250 ML IV SCH (08:19)
[2020-10-04] MEDS: CEFEPIME 2 GM/NS 0.9% 100 ML 100 ML IV SCH ×2 (10:26→23:49)
[2020-10-04 10:59] LABS: ABG PCO2 46 mmHg (35-45); ABG PO2 166 mmHg (80-105)
[2020-10-04 11:00] LABS: ABG HCO3 29 mmol/L (22-26); ABG TCO2 30
[2020-10-04] MEDS: ENOXAPARIN SOD INJ 40 MG/0.4 ML SYR SC SCH (16:12)
[2020-10-04] MEDS: NOREPINEPHRINE INJ 4MG/4ML 8 MG in DEXTROSE 5% 250ML 250 ML IV PRN (20:55)
[2020-10-04] MEDS: VANCOMYCIN HCL 1.5 GM in SODIUM CHLORIDE 0.9% 250ML 300 ML IV SCH (21:00)
[2020-10-05] VITALS (23 sets, daily range): BP systolic 88–122; BP diastolic 48–62
[2020-10-05] MEDS: MIDAZOLAM HCL 5MG/ML 10ML VIAL 100 ML IV PRN ×3 (04:08→21:13)
[2020-10-05 05:14] LABS: BASOPHILS % 0.2 % (0.0-1.0); EOSINOPHILS # (AUTO) 0.5 (0.0-0.4); EOSINOPHILS % 2.4 % (0.0-6.0); HEMOGLOBIN 9.7 g/dL (14.0-18.0); LYMPHOCYTES # (AUTO) 0.8 (1.0-3.2); LYMPHOCYTES % 4.4 % (18.0-39.1); MEAN CORPUSCULAR HEMOGLOBIN 26.6 pg (28-32); MEAN CORPUSCULAR HGB CONC 31.3 g/dL (31-35); MEAN CORPUSCULAR VOLUME 85.2 fL (81-99); MONOCYTES % 5.4 % (4.4-11.3); NEUTROPHILS % 84.6 % (38.7-80.0); PLATELET COUNT 320 x10e3/uL (140-360); RED BLOOD COUNT 3.64 x10e6/uL (4.3-5.7); RED CELL DISTRIBUTION WIDTH 14.5 % (11.7-14.4)
[2020-10-05 06:11] LABS: ALANINE AMINOTRANSFERASE 127 IU/L (0-55); ALBUMIN 1.4 g/dL (3.5-5.0); ALBUMIN/GLOBULIN RATIO 0.3 (0.8-2.0); ALKALINE PHOSPHATASE 145 IU/L (40-150); BLOOD UREA NITROGEN 32 mg/dL (7-26); BUN/CREATININE RATIO 47 (6-25); CALCIUM 8.3 mg/dL (8.4-10.2); CARBON DIOXIDE 27 mmol/L (22-29); CHLORIDE 106 mmol/L (98-107); CREATININE, SERUM 0.68 mg/dL (0.72-1.25); EST GLOMERULAR FILTRATION RATE > 60 ML/MIN (60-); GLUCOSE 119 mg/dL (74-118); SODIUM 138 mmol/L (136-145)
[2020-10-05] MEDS: FENTANYL 2000MCG/NS 250 250 ML IV PRN ×2 (08:18→21:12)
[2020-10-05] MEDS: POLYETHYLENE GLYCOL 3350 17 GM PACK PO SCH (08:21)
[2020-10-05] MEDS: VANCOMYCIN HCL 1.5 GM in SODIUM CHLORIDE 0.9% 250ML 300 ML IV SCH ×2 (08:21→21:00)
[2020-10-05 09:11] LABS: ABG HCO3 289 mmol/L (22-26); ABG PCO2 46 mmHg (35-45); ABG PH 7.41 (7.35-7.45); ABG PO2 139 mmHg (80-105); ABG TCO2 30
[2020-10-05] MEDS: CEFEPIME 2 GM/NS 0.9% 100 ML 100 ML IV SCH ×2 (11:03→23:23)
[2020-10-05] MEDS: ACETAMINOPHEN 325 MG TAB PO PRN (12:24)
[2020-10-05] MEDS: ENOXAPARIN SOD INJ 40 MG/0.4 ML SYR SC SCH (17:05)
[2020-10-06] VITALS (23 sets, daily range): BP systolic 93–126; BP diastolic 51–77
[2020-10-06 04:55] LABS: BASOPHILS # (AUTO) 0.1 (0.0-0.1); BASOPHILS % 0.6 % (0.0-1.0); EOSINOPHILS # (AUTO) 0.6 (0.0-0.4); EOSINOPHILS % 2.5 % (0.0-6.0); HEMATOCRIT 30.1 % (38.2-49.6); HEMOGLOBIN 9.1 g/dL (14.0-18.0); LYMPHOCYTES # (AUTO) 1.1 (1.0-3.2); MEAN CORPUSCULAR HEMOGLOBIN 25.8 pg (28-32); MEAN CORPUSCULAR HGB CONC 30.2 g/dL (31-35); MEAN CORPUSCULAR VOLUME 85.3 fL (81-99); MONOCYTES # (AUTO) 1.6 (0.2-0.8); NEUTROPHILS # (AUTO) 17.6 (2.1-6.9); NEUTROPHILS % 79.8 % (38.7-80.0); PLATELET COUNT 328 x10e3/uL (140-360); RED BLOOD COUNT 3.53 x10e6/uL (4.3-5.7); RED CELL DISTRIBUTION WIDTH 15.1 % (11.7-14.4)
[2020-10-06] MEDS: ACETAMINOPHEN 325 MG TAB PO PRN (05:00)
[2020-10-06 05:31] LABS: ALANINE AMINOTRANSFERASE 139 IU/L (0-55); ALBUMIN 1.3 g/dL (3.5-5.0); ALBUMIN/GLOBULIN RATIO 0.3 (0.8-2.0); ALKALINE PHOSPHATASE 184 IU/L (40-150); ANION GAP 11.9 mmol/L (8-16); BLOOD UREA NITROGEN 25 mg/dL (7-26); BUN/CREATININE RATIO 33 (6-25); CALCIUM 7.7 mg/dL (8.4-10.2); CARBON DIOXIDE 25 mmol/L (22-29); CHLORIDE 102 mmol/L (98-107); CREATININE, SERUM 0.76 mg/dL (0.72-1.25); EST GLOMERULAR FILTRATION RATE > 60 ML/MIN (60-); GLUCOSE 216 mg/dL (74-118); POTASSIUM 3.9 mmol/L (3.5-5.1); SODIUM 135 mmol/L (136-145)
[2020-10-06 07:17] LABS: ANISOCYTOSIS SLIGHT; EOSINOPHILS % (MANUAL) 1 % (0-7); LYMPHOCYTES % (MANUAL) 5 % (19-48); MONOCYTES % (MANUAL) 4 % (3.4-9.0); NEUTROPHILS % (MANUAL) 90 % (40-74); PLATELET ESTIMATE ADEQUATE; PLATELET MORPHOLOGY COMMENT NORMAL; RBC MORPHOLOGY COMMENT NORMAL
[2020-10-06] MEDS: VANCOMYCIN HCL 1.5 GM in SODIUM CHLORIDE 0.9% 250ML 300 ML IV SCH ×2 (08:03→21:34)
[2020-10-06] MEDS: POLYETHYLENE GLYCOL 3350 17 GM PACK PO SCH (08:03)
[2020-10-06] MEDS: CEFEPIME 2 GM/NS 0.9% 100 ML 100 ML IV SCH ×2 (13:26→23:06)
[2020-10-06] MEDS: FENTANYL 2000MCG/NS 250 250 ML IV PRN (14:39)
[2020-10-06] MEDS: MIDAZOLAM HCL 5MG/ML 10ML VIAL 100 ML IV PRN (14:40)
[2020-10-06] MEDS: ENOXAPARIN SOD INJ 40 MG/0.4 ML SYR SC SCH (17:32)
[2020-10-07] VITALS (35 sets, daily range): BP systolic 82–120; BP diastolic 43–66
[2020-10-07 04:51] LABS: BASOPHILS % 0.2 % (0.0-1.0); EOSINOPHILS # (AUTO) 0.4 (0.0-0.4); EOSINOPHILS % 1.8 % (0.0-6.0); HEMATOCRIT 28.1 % (38.2-49.6); HEMOGLOBIN 8.7 g/dL (14.0-18.0); LYMPHOCYTES # (AUTO) 1.1 (1.0-3.2); LYMPHOCYTES % 5.2 % (18.0-39.1); MEAN CORPUSCULAR HEMOGLOBIN 26.8 pg (28-32); MEAN CORPUSCULAR VOLUME 86.5 fL (81-99); MONOCYTES # (AUTO) 1.5 (0.2-0.8); MONOCYTES % 7.2 % (4.4-11.3); NEUTROPHILS # (AUTO) 16.8 (2.1-6.9); NEUTROPHILS % 81.3 % (38.7-80.0); PLATELET COUNT 261 x10e3/uL (140-360); RED BLOOD COUNT 3.25 x10e6/uL (4.3-5.7); RED CELL DISTRIBUTION WIDTH 14.8 % (11.7-14.4)
[2020-10-07 05:14] LABS: ALANINE AMINOTRANSFERASE 104 IU/L (0-55); ALBUMIN 1.2 g/dL (3.5-5.0); ALBUMIN/GLOBULIN RATIO 0.3 (0.8-2.0); ALKALINE PHOSPHATASE 189 IU/L (40-150); BLOOD UREA NITROGEN 27 mg/dL (7-26); BUN/CREATININE RATIO 38 (6-25); CALCIUM 8.1 mg/dL (8.4-10.2); CARBON DIOXIDE 25 mmol/L (22-29); CHLORIDE 105 mmol/L (98-107); CREATININE, SERUM 0.71 mg/dL (0.72-1.25); EST GLOMERULAR FILTRATION RATE > 60 ML/MIN (60-); GLUCOSE 137 mg/dL (74-118); SODIUM 138 mmol/L (136-145)
[2020-10-07] MEDS: FENTANYL 2000MCG/NS 250 250 ML IV PRN ×2 (05:27→21:00)
[2020-10-07] MEDS: MIDAZOLAM HCL 5MG/ML 10ML VIAL 100 ML IV PRN ×2 (05:28→14:36)
[2020-10-07] MEDS: VANCOMYCIN HCL 1.5 GM in SODIUM CHLORIDE 0.9% 250ML 300 ML IV SCH ×2 (08:54→20:33)
[2020-10-07] MEDS: POLYETHYLENE GLYCOL 3350 17 GM PACK PO SCH (08:54)
[2020-10-07 09:36] LABS: ABG HCO3 28 mmol/L (22-26); ABG PCO2 41 mmHg (35-45); ABG PH 7.44 (7.35-7.45); ABG PO2 108 mmHg (80-105); ABG TCO2 29
[2020-10-07 16:22] LABS: ABG HCO3 28 mmol/L (22-26); ABG PCO2 46 mmHg (35-45); ABG PH 7.39 (7.35-7.45); ABG PO2 118 mmHg (80-105); ABG TCO2 29
[2020-10-07] MEDS: ENOXAPARIN SOD INJ 40 MG/0.4 ML SYR SC SCH (17:18)
[2020-10-08] VITALS (29 sets, daily range): BP systolic 92–129; BP diastolic 47–64
[2020-10-08] MEDS: MIDAZOLAM HCL 5MG/ML 10ML VIAL 100 ML IV PRN ×3 (00:40→21:30)
[2020-10-08 04:56] LABS: BASOPHILS # (AUTO) 0.1 (0.0-0.1); BASOPHILS % 0.3 % (0.0-1.0); EOSINOPHILS # (AUTO) 0.2 (0.0-0.4); HEMATOCRIT 28.8 % (38.2-49.6); HEMOGLOBIN 8.9 g/dL (14.0-18.0); LYMPHOCYTES # (AUTO) 1.2 (1.0-3.2); LYMPHOCYTES % 5.8 % (18.0-39.1); MEAN CORPUSCULAR HEMOGLOBIN 26.1 pg (28-32); MEAN CORPUSCULAR HGB CONC 30.9 g/dL (31-35); MEAN CORPUSCULAR VOLUME 84.5 fL (81-99); MONOCYTES # (AUTO) 1.7 (0.2-0.8); MONOCYTES % 8.5 % (4.4-11.3); NEUTROPHILS # (AUTO) 15.9 (2.1-6.9); NEUTROPHILS % 80.2 % (38.7-80.0); PLATELET COUNT 299 x10e3/uL (140-360); RED BLOOD COUNT 3.41 x10e6/uL (4.3-5.7); RED CELL DISTRIBUTION WIDTH 15.5 % (11.7-14.4)
[2020-10-08 05:16] LABS: ALANINE AMINOTRANSFERASE 103 IU/L (0-55); ALBUMIN 1.2 g/dL (3.5-5.0); ALBUMIN/GLOBULIN RATIO 0.3 (0.8-2.0); ALKALINE PHOSPHATASE 207 IU/L (40-150); ANION GAP 13.4 mmol/L (8-16); BLOOD UREA NITROGEN 32 mg/dL (7-26); BUN/CREATININE RATIO 43 (6-25); CALCIUM 7.8 mg/dL (8.4-10.2); CARBON DIOXIDE 24 mmol/L (22-29); CHLORIDE 106 mmol/L (98-107); CREATININE, SERUM 0.74 mg/dL (0.72-1.25); EST GLOMERULAR FILTRATION RATE > 60 ML/MIN (60-); GLUCOSE 142 mg/dL (74-118); POTASSIUM 4.4 mmol/L (3.5-5.1); SODIUM 139 mmol/L (136-145)
[2020-10-08] MEDS: VANCOMYCIN HCL 1.5 GM in SODIUM CHLORIDE 0.9% 250ML 300 ML IV SCH ×3 (08:32→21:55)
[2020-10-08] MEDS: POLYETHYLENE GLYCOL 3350 17 GM PACK PO SCH (08:32)
[2020-10-08] MEDS: NOREPINEPHRINE INJ 4MG/4ML 8 MG in DEXTROSE 5% 250ML 250 ML IV PRN (08:58)
[2020-10-08] MEDS ORDERED: NOREPINEPHRINE 8 MG/D5W 250 ML 250 ML ONE (08:58)
[2020-10-08] MEDS: ENOXAPARIN SOD INJ 40 MG/0.4 ML SYR SC SCH (16:46)
[2020-10-08] MEDS: ACETAMINOPHEN 325 MG TAB PO PRN (16:47)
[2020-10-08] MEDS: FENTANYL 2000MCG/NS 250 250 ML IV PRN (16:50)
[2020-10-09] VITALS (49 sets, daily range): BP systolic 85–149; BP diastolic 45–67
[2020-10-09 06:11] LABS: BASOPHILS # (AUTO) 0.1 (0.0-0.1); BASOPHILS % 0.5 % (0.0-1.0); EOSINOPHILS # (AUTO) 0.4 (0.0-0.4); EOSINOPHILS % 2.1 % (0.0-6.0); HEMOGLOBIN 9.2 g/dL (14.0-18.0); LYMPHOCYTES # (AUTO) 1.2 (1.0-3.2); LYMPHOCYTES % 6.3 % (18.0-39.1); MEAN CORPUSCULAR HEMOGLOBIN 25.6 pg (28-32); MEAN CORPUSCULAR HGB CONC 30.7 g/dL (31-35); MEAN CORPUSCULAR VOLUME 83.6 fL (81-99); MONOCYTES # (AUTO) 1.7 (0.2-0.8); MONOCYTES % 8.6 % (4.4-11.3); NEUTROPHILS # (AUTO) 14.6 (2.1-6.9); NEUTROPHILS % 76.1 % (38.7-80.0); PLATELET COUNT 335 x10e3/uL (140-360); RED BLOOD COUNT 3.59 x10e6/uL (4.3-5.7); RED CELL DISTRIBUTION WIDTH 15.7 % (11.7-14.4)
[2020-10-09 06:27] LABS: ALANINE AMINOTRANSFERASE 113 IU/L (0-55); ALBUMIN 1.2 g/dL (3.5-5.0); ALBUMIN/GLOBULIN RATIO 0.3 (0.8-2.0); ALKALINE PHOSPHATASE 206 IU/L (40-150); ANION GAP 10.8 mmol/L (8-16); BLOOD UREA NITROGEN 31 mg/dL (7-26); BUN/CREATININE RATIO 48 (6-25); CALCIUM 8.1 mg/dL (8.4-10.2); CARBON DIOXIDE 26 mmol/L (22-29); CHLORIDE 107 mmol/L (98-107); CREATININE, SERUM 0.65 mg/dL (0.72-1.25); EST GLOMERULAR FILTRATION RATE > 60 ML/MIN (60-); GLUCOSE 145 mg/dL (74-118); POTASSIUM 3.8 mmol/L (3.5-5.1); SODIUM 140 mmol/L (136-145)
[2020-10-09] MEDS: MIDAZOLAM HCL 5MG/ML 10ML VIAL 100 ML IV PRN ×2 (07:27→19:30)
[2020-10-09] MEDS: FENTANYL 2000MCG/NS 250 250 ML IV PRN (07:29)
[2020-10-09] MEDS: POLYETHYLENE GLYCOL 3350 17 GM PACK PO SCH (09:55)
[2020-10-09] MEDS: VANCOMYCIN HCL 1.5 GM in SODIUM CHLORIDE 0.9% 250ML 300 ML IV SCH ×2 (09:55→21:30)
[2020-10-09] MEDS: ACETAMINOPHEN 325 MG TAB PO PRN ×2 (13:05→22:10)
[2020-10-09] MEDS: ENOXAPARIN SOD INJ 40 MG/0.4 ML SYR SC SCH (16:15)
[2020-10-09 17:29] LABS: ABG HCO3 27 mmol/L (22-26); ABG PCO2 39 mmHg (35-45); ABG PH 7.45 (7.35-7.45); ABG PO2 99 mmHg (80-105)
[2020-10-09 17:30] LABS: ABG TCO2 29
[2020-10-10] VITALS (23 sets, daily range): BP systolic 89–161; BP diastolic 46–97
[2020-10-10] MEDS: FENTANYL 2000MCG/NS 250 250 ML IV PRN ×2 (03:20→16:37)
[2020-10-10 05:09] LABS: BASOPHILS # (AUTO) 0.1 (0.0-0.1); BASOPHILS % 0.6 % (0.0-1.0); EOSINOPHILS # (AUTO) 0.3 (0.0-0.4); EOSINOPHILS % 1.5 % (0.0-6.0); HEMATOCRIT 28.6 % (38.2-49.6); HEMOGLOBIN 8.8 g/dL (14.0-18.0); LYMPHOCYTES # (AUTO) 1.2 (1.0-3.2); LYMPHOCYTES % 6.1 % (18.0-39.1); MEAN CORPUSCULAR HGB CONC 30.8 g/dL (31-35); MEAN CORPUSCULAR VOLUME 84.6 fL (81-99); MONOCYTES # (AUTO) 2.1 (0.2-0.8); NEUTROPHILS % 74.5 % (38.7-80.0); PLATELET COUNT 327 x10e3/uL (140-360); RED BLOOD COUNT 3.38 x10e6/uL (4.3-5.7); RED CELL DISTRIBUTION WIDTH 15.7 % (11.7-14.4)
[2020-10-10 05:41] LABS: ALANINE AMINOTRANSFERASE 117 IU/L (0-55); ALBUMIN 1.2 g/dL (3.5-5.0); ALBUMIN/GLOBULIN RATIO 0.3 (0.8-2.0); ALKALINE PHOSPHATASE 193 IU/L (40-150); BLOOD UREA NITROGEN 33 mg/dL (7-26); BUN/CREATININE RATIO 52 (6-25); CALCIUM 8.1 mg/dL (8.4-10.2); CARBON DIOXIDE 27 mmol/L (22-29); CHLORIDE 106 mmol/L (98-107); CREATININE, SERUM 0.63 mg/dL (0.72-1.25); EST GLOMERULAR FILTRATION RATE > 60 ML/MIN (60-); GLUCOSE 119 mg/dL (74-118); SODIUM 142 mmol/L (136-145)
[2020-10-10] MEDS: MIDAZOLAM HCL 5MG/ML 10ML VIAL 100 ML IV PRN ×2 (07:15→16:39)
[2020-10-10] MEDS: POLYETHYLENE GLYCOL 3350 17 GM PACK PO SCH (09:00)
[2020-10-10] MEDS: VANCOMYCIN HCL 1.5 GM in SODIUM CHLORIDE 0.9% 250ML 300 ML IV SCH ×2 (09:12→21:38)
[2020-10-10 10:19] LABS: ABG PCO2 44 mmHg (35-45); ABG PH 7.42 (7.35-7.45); ABG PO2 133 mmHg (80-105)
[2020-10-10 10:20] LABS: ABG HCO3 28 mmol/L (22-26); ABG TCO2 29
[2020-10-10] MEDS: ACETAMINOPHEN 325 MG TAB PO PRN ×2 (11:15→17:11)
[2020-10-11] VITALS (21 sets, daily range): BP systolic 86–173; BP diastolic 51–81
[2020-10-11] MEDS: MIDAZOLAM HCL 5MG/ML 10ML VIAL 100 ML IV PRN ×3 (00:01→18:32)
[2020-10-11] MEDS: FENTANYL 2000MCG/NS 250 250 ML IV PRN ×2 (05:10→18:31)
[2020-10-11 05:33] LABS: BASOPHILS # (AUTO) 0.1 (0.0-0.1); BASOPHILS % 0.6 % (0.0-1.0); EOSINOPHILS # (AUTO) 0.3 (0.0-0.4); EOSINOPHILS % 1.2 % (0.0-6.0); HEMATOCRIT 27.9 % (38.2-49.6); HEMOGLOBIN 8.6 g/dL (14.0-18.0); LYMPHOCYTES % 4.4 % (18.0-39.1); MEAN CORPUSCULAR HEMOGLOBIN 25.8 pg (28-32); MEAN CORPUSCULAR HGB CONC 30.8 g/dL (31-35); MEAN CORPUSCULAR VOLUME 83.8 fL (81-99); MONOCYTES # (AUTO) 1.9 (0.2-0.8); MONOCYTES % 8.2 % (4.4-11.3); NEUTROPHILS # (AUTO) 18.9 (2.1-6.9); NEUTROPHILS % 81.1 % (38.7-80.0); PLATELET COUNT 335 x10e3/uL (140-360); RED BLOOD COUNT 3.33 x10e6/uL (4.3-5.7)
[2020-10-11] MEDS: ACETAMINOPHEN 325 MG TAB PO PRN ×2 (06:03)
[2020-10-11] MEDS: VANCOMYCIN HCL 1.5 GM in SODIUM CHLORIDE 0.9% 250ML 300 ML IV SCH ×2 (08:28→21:25)
[2020-10-11] MEDS: POLYETHYLENE GLYCOL 3350 17 GM PACK PO SCH (08:28)
[2020-10-11 09:01] LABS: ANION GAP 11.2 mmol/L (8-16); BLOOD UREA NITROGEN 35 mg/dL (7-26); BUN/CREATININE RATIO 54 (6-25); CALCIUM 8.1 mg/dL (8.4-10.2); CARBON DIOXIDE 28 mmol/L (22-29); CHLORIDE 105 mmol/L (98-107); CREATININE, SERUM 0.65 mg/dL (0.72-1.25); EST GLOMERULAR FILTRATION RATE > 60 ML/MIN (60-); GLUCOSE 131 mg/dL (74-118); POTASSIUM 4.2 mmol/L (3.5-5.1); SODIUM 140 mmol/L (136-145)
[2020-10-11] MEDS: ACETAMINOPHEN 325 MG/10 ML UDC NG PRN ×2 (12:28→17:59)
[2020-10-11 16:51] LABS: INR 1.17; PROTHROMBIN TIME 15.7 seconds (11.9-14.5)
[2020-10-12] VITALS (23 sets, daily range): BP systolic 92–146; BP diastolic 54–77
[2020-10-12] MEDS ORDERED: ACETAMINOPHEN 650 MG SUPP PR ONE (01:13)
[2020-10-12 05:33] LABS: BASOPHILS # (AUTO) 0.1 (0.0-0.1); BASOPHILS % 0.5 % (0.0-1.0); EOSINOPHILS # (AUTO) 0.2 (0.0-0.4); EOSINOPHILS % 0.6 % (0.0-6.0); HEMOGLOBIN 8.2 g/dL (14.0-18.0); LYMPHOCYTES # (AUTO) 1.1 (1.0-3.2); LYMPHOCYTES % 4.2 % (18.0-39.1); MEAN CORPUSCULAR HEMOGLOBIN 25.9 pg (28-32); MEAN CORPUSCULAR HGB CONC 30.4 g/dL (31-35); MEAN CORPUSCULAR VOLUME 85.2 fL (81-99); MONOCYTES # (AUTO) 2.1 (0.2-0.8); MONOCYTES % 7.8 % (4.4-11.3); NEUTROPHILS # (AUTO) 21.5 (2.1-6.9); PLATELET COUNT 343 x10e3/uL (140-360); RED BLOOD COUNT 3.17 x10e6/uL (4.3-5.7); RED CELL DISTRIBUTION WIDTH 16.5 % (11.7-14.4)
[2020-10-12 05:59] LABS: ALANINE AMINOTRANSFERASE 85 IU/L (0-55); ALBUMIN 1.2 g/dL (3.5-5.0); ALBUMIN/GLOBULIN RATIO 0.3 (0.8-2.0); ALKALINE PHOSPHATASE 160 IU/L (40-150); ANION GAP 10.2 mmol/L (8-16); BLOOD UREA NITROGEN 34 mg/dL (7-26); BUN/CREATININE RATIO 55 (6-25); CALCIUM 8.3 mg/dL (8.4-10.2); CARBON DIOXIDE 26 mmol/L (22-29); CHLORIDE 109 mmol/L (98-107); CREATININE, SERUM 0.62 mg/dL (0.72-1.25); EST GLOMERULAR FILTRATION RATE > 60 ML/MIN (60-); GLUCOSE 101 mg/dL (74-118); POTASSIUM 4.2 mmol/L (3.5-5.1); SODIUM 141 mmol/L (136-145)
[2020-10-12] MEDS ORDERED: BUPIVACAINE 0.25%/EPI 30ML SDV INJ ONE (07:21)
[2020-10-12] MEDS ORDERED: BUPIVACAINE HCL 0.5% INJ 30 ML VIAL INJ ONE (07:22)
[2020-10-12] MEDS ORDERED: SODIUM CHLORIDE 0.9% 1000ML 1,000 ML ONE (07:41)
[2020-10-12] MEDS: MIDAZOLAM HCL 5MG/ML 10ML VIAL 100 ML IV PRN ×2 (07:59→17:50)
[2020-10-12] MEDS: FENTANYL 2000MCG/NS 250 250 ML IV PRN ×2 (08:00→23:26)
[2020-10-12] MEDS: VANCOMYCIN HCL 1.5 GM in SODIUM CHLORIDE 0.9% 250ML 300 ML IV SCH ×2 (08:43→21:39)
[2020-10-12] MEDS: DOCUSATE SODIUM LIQD 100 MG/10 ML UDC NG SCH (08:43)
[2020-10-12 08:44] LABS: BAND NEUTROPHILS % (MANUAL) 7 %; EOSINOPHILS % (MANUAL) 1 % (0-7); LYMPHOCYTES % (MANUAL) 4 % (19-48); MONOCYTES % (MANUAL) 8 % (3.4-9.0); NEUTROPHILS % (MANUAL) 80 % (40-74)
[2020-10-12 08:45] LABS: HYPOCHROMASIA FEW
[2020-10-12 08:46] LABS: PLATELET ESTIMATE ADEQUATE; PLATELET MORPHOLOGY COMMENT NORMAL; POLYCHROMASIA FEW; RBC MORPHOLOGY COMMENT ABNORMAL; TOXIC GRANULATION FEW
[2020-10-12] MEDS: EYE LUBRICANT OPTH OINT 3.5GM TUBE OP SCH (09:14)
[2020-10-12 09:26] LABS: ABG HCO3 28 mmol/L (22-26); ABG PCO2 40 mmHg (35-45); ABG PH 7.45 (7.35-7.45); ABG PO2 87 mmHg (80-105); ABG TCO2 30
[2020-10-12] MEDS ORDERED: ROCURONIUM BROMIDE 10 MG/ML 5ML VIAL IV ONE (13:26)
[2020-10-12] MEDS ORDERED: PROPOFOL IV EMULSION 10 MG/ML 20 ML VIAL ONE (13:26)
[2020-10-12] MEDS ORDERED: LIDOCAINE HCL 2% LOCAL INJ 5 ML SDV VIAL INJ ONE (13:26)
[2020-10-12] MEDS ORDERED: MIDAZOLAM HCL 2 MG/2 ML VIAL ONE (13:34)
[2020-10-12] MEDS: ACETAMINOPHEN 325 MG/10 ML UDC NG PRN ×2 (18:07→23:25)
[2020-10-12] MEDS ORDERED: LACTATED RINGER'S 1,000 ML ONE (19:38)
[2020-10-12] MEDS ORDERED: LACTATED RINGER'S 500 ML INJ ONE (19:45)
[2020-10-12] MEDS: IBUPROFEN 400 MG TAB PO PRN (23:25)
[2020-10-13] VITALS (29 sets, daily range): BP systolic 83–191; BP diastolic 43–74
[2020-10-13] MEDS: MIDAZOLAM HCL 5MG/ML 10ML VIAL 100 ML IV PRN ×4 (01:15→21:18)
[2020-10-13 05:21] LABS: BASOPHILS # (AUTO) 0.1 (0.0-0.1); BASOPHILS % 0.6 % (0.0-1.0); EOSINOPHILS # (AUTO) 0.3 (0.0-0.4); EOSINOPHILS % 1.2 % (0.0-6.0); HEMATOCRIT 26.9 % (38.2-49.6); HEMOGLOBIN 8.2 g/dL (14.0-18.0); LYMPHOCYTES # (AUTO) 1.1 (1.0-3.2); LYMPHOCYTES % 4.4 % (18.0-39.1); MEAN CORPUSCULAR HGB CONC 30.5 g/dL (31-35); MEAN CORPUSCULAR VOLUME 85.4 fL (81-99); MONOCYTES # (AUTO) 1.9 (0.2-0.8); MONOCYTES % 7.5 % (4.4-11.3); NEUTROPHILS # (AUTO) 20.1 (2.1-6.9); NEUTROPHILS % 81.4 % (38.7-80.0); PLATELET COUNT 388 x10e3/uL (140-360); RED BLOOD COUNT 3.15 x10e6/uL (4.3-5.7); RED CELL DISTRIBUTION WIDTH 16.5 % (11.7-14.4)
[2020-10-13 05:55] LABS: ALANINE AMINOTRANSFERASE 97 IU/L (0-55); ALBUMIN 1.2 g/dL (3.5-5.0); ALBUMIN/GLOBULIN RATIO 0.3 (0.8-2.0); ALKALINE PHOSPHATASE 219 IU/L (40-150); BLOOD UREA NITROGEN 40 mg/dL (7-26); BUN/CREATININE RATIO 56 (6-25); CALCIUM 8.5 mg/dL (8.4-10.2); CARBON DIOXIDE 24 mmol/L (22-29); CHLORIDE 107 mmol/L (98-107); CREATININE, SERUM 0.72 mg/dL (0.72-1.25); EST GLOMERULAR FILTRATION RATE > 60 ML/MIN (60-); GLUCOSE 157 mg/dL (74-118); SODIUM 140 mmol/L (136-145)
[2020-10-13 07:36] LABS: LYMPHOCYTES % (MANUAL) 8 % (19-48); METAMYELOCYTES % (MANUAL) 2 % (0-0); MONOCYTES % (MANUAL) 5 % (3.4-9.0); NEUTROPHILS % (MANUAL) 85 % (40-74)
[2020-10-13 07:37] LABS: ANISOCYTOSIS SLIGHT; PLATELET ESTIMATE SLIGHTLY INCREASED; PLATELET MORPHOLOGY COMMENT FEW LARGE; RBC MORPHOLOGY COMMENT NORMAL
[2020-10-13] MEDS: IBUPROFEN 400 MG TAB PO PRN ×2 (08:04→16:05)
[2020-10-13] MEDS: ACETAMINOPHEN 325 MG/10 ML UDC NG PRN ×2 (08:05→16:06)
[2020-10-13] MEDS: EYE LUBRICANT OPTH OINT 3.5GM TUBE OP SCH (08:06)
[2020-10-13] MEDS: VANCOMYCIN HCL 1.5 GM in SODIUM CHLORIDE 0.9% 250ML 300 ML IV SCH ×2 (08:06→20:26)
[2020-10-13] MEDS: DOCUSATE SODIUM LIQD 100 MG/10 ML UDC NG SCH (08:06)
[2020-10-13 09:54] LABS: ABG HCO3 25 mmol/L (22-26); ABG PCO2 39 mmHg (35-45); ABG PH 7.41 (7.35-7.45); ABG PO2 106 mmHg (80-105); ABG TCO2 26
[2020-10-13] MEDS: FENTANYL 2000MCG/NS 250 250 ML IV PRN (11:06)
[2020-10-13] MEDS ORDERED: VECURONIUM BROMIDE FOR INJ 20 MG VIAL IV STA (16:00)
[2020-10-13] MEDS ORDERED: VECURONIUM BROMIDE FOR INJ 20 MG VIAL ONE (16:04)
[2020-10-13] MEDS: NOREPINEPHRINE 8 MG/D5W 250 ML 250 ML IV PRN (20:27)
[2020-10-14] VITALS (25 sets, daily range): BP systolic 91–162; BP diastolic 43–68
[2020-10-14] MEDS: FENTANYL 2000MCG/NS 250 250 ML IV PRN ×3 (00:59→22:02)
[2020-10-14] MEDS: IBUPROFEN 400 MG TAB PO PRN ×2 (02:10→12:32)
[2020-10-14] MEDS: ACETAMINOPHEN 325 MG/10 ML UDC NG PRN ×2 (02:10→18:08)
[2020-10-14] MEDS: MIDAZOLAM HCL 5MG/ML 10ML VIAL 100 ML IV PRN ×4 (03:00→22:03)
[2020-10-14 05:13] LABS: BASOPHILS # (AUTO) 0.1 (0.0-0.1); BASOPHILS % 0.5 % (0.0-1.0); EOSINOPHILS # (AUTO) 0.3 (0.0-0.4); EOSINOPHILS % 1.4 % (0.0-6.0); HEMATOCRIT 25.9 % (38.2-49.6); HEMOGLOBIN 7.8 g/dL (14.0-18.0); LYMPHOCYTES # (AUTO) 0.7 (1.0-3.2); LYMPHOCYTES % 3.1 % (18.0-39.1); MEAN CORPUSCULAR HEMOGLOBIN 25.3 pg (28-32); MEAN CORPUSCULAR HGB CONC 30.1 g/dL (31-35); MEAN CORPUSCULAR VOLUME 84.1 fL (81-99); MONOCYTES # (AUTO) 1.7 (0.2-0.8); MONOCYTES % 7.8 % (4.4-11.3); NEUTROPHILS % 82.4 % (38.7-80.0); PLATELET COUNT 390 x10e3/uL (140-360); RED BLOOD COUNT 3.08 x10e6/uL (4.3-5.7); RED CELL DISTRIBUTION WIDTH 16.7 % (11.7-14.4)
[2020-10-14 05:34] LABS: ALANINE AMINOTRANSFERASE 86 IU/L (0-55); ALBUMIN 1.1 g/dL (3.5-5.0); ALBUMIN/GLOBULIN RATIO 0.3 (0.8-2.0); ALKALINE PHOSPHATASE 224 IU/L (40-150); ANION GAP 11.8 mmol/L (8-16); BLOOD UREA NITROGEN 34 mg/dL (7-26); BUN/CREATININE RATIO 51 (6-25); CARBON DIOXIDE 24 mmol/L (22-29); CHLORIDE 109 mmol/L (98-107); CREATININE, SERUM 0.67 mg/dL (0.72-1.25); EST GLOMERULAR FILTRATION RATE > 60 ML/MIN (60-); GLUCOSE 171 mg/dL (74-118); POTASSIUM 3.8 mmol/L (3.5-5.1); SODIUM 141 mmol/L (136-145)
[2020-10-14] MEDS: DOCUSATE SODIUM LIQD 100 MG/10 ML UDC NG SCH (09:30)
[2020-10-14] MEDS: EYE LUBRICANT OPTH OINT 3.5GM TUBE OP SCH (09:30)
[2020-10-14] MEDS: VANCOMYCIN HCL 1.5 GM in SODIUM CHLORIDE 0.9% 250ML 300 ML IV SCH (10:18)
[2020-10-14 11:25] LABS: ABG HCO3 25 mmol/L (22-26); ABG PCO2 42 mmHg (35-45); ABG PH 7.38 (7.35-7.45); ABG PO2 121 mmHg (80-105); ABG TCO2 26
[2020-10-14] MEDS ORDERED: FAMOTIDINE IV SCH (17:15)
[2020-10-14] MEDS: FAMOTIDINE IV SCH (18:01)
[2020-10-14] MEDS: NOREPINEPHRINE 8 MG/D5W 250 ML 250 ML IV PRN (22:04)
[2020-10-15] VITALS (25 sets, daily range): BP systolic 91–154; BP diastolic 50–78
[2020-10-15] MEDS: ACETAMINOPHEN 325 MG/10 ML UDC NG PRN ×3 (01:11→22:55)
[2020-10-15] MEDS: IBUPROFEN 400 MG TAB PO PRN ×2 (01:11→16:00)
[2020-10-15 05:10] LABS: BASOPHILS # (AUTO) 0.1 (0.0-0.1); BASOPHILS % 0.5 % (0.0-1.0); EOSINOPHILS # (AUTO) 0.3 (0.0-0.4); EOSINOPHILS % 1.3 % (0.0-6.0); HEMOGLOBIN 7.2 g/dL (14.0-18.0); LYMPHOCYTES % 5.4 % (18.0-39.1); MEAN CORPUSCULAR HEMOGLOBIN 25.3 pg (28-32); MEAN CORPUSCULAR VOLUME 84.2 fL (81-99); MONOCYTES # (AUTO) 1.6 (0.2-0.8); MONOCYTES % 8.4 % (4.4-11.3); NEUTROPHILS # (AUTO) 15.2 (2.1-6.9); NEUTROPHILS % 80.8 % (38.7-80.0); PLATELET COUNT 364 x10e3/uL (140-360); RED BLOOD COUNT 2.85 x10e6/uL (4.3-5.7); RED CELL DISTRIBUTION WIDTH 16.8 % (11.7-14.4)
[2020-10-15 05:30] LABS: ALANINE AMINOTRANSFERASE 84 IU/L (0-55); ALBUMIN 1.1 g/dL (3.5-5.0); ALBUMIN/GLOBULIN RATIO 0.3 (0.8-2.0); ALKALINE PHOSPHATASE 213 IU/L (40-150); ANION GAP 10.7 mmol/L (8-16); BLOOD UREA NITROGEN 37 mg/dL (7-26); BUN/CREATININE RATIO 51 (6-25); CALCIUM 8.3 mg/dL (8.4-10.2); CARBON DIOXIDE 24 mmol/L (22-29); CHLORIDE 110 mmol/L (98-107); CREATININE, SERUM 0.72 mg/dL (0.72-1.25); EST GLOMERULAR FILTRATION RATE > 60 ML/MIN (60-); GLUCOSE 147 mg/dL (74-118); POTASSIUM 3.7 mmol/L (3.5-5.1); SODIUM 141 mmol/L (136-145)
[2020-10-15] MEDS: FENTANYL 2000MCG/NS 250 250 ML IV PRN ×2 (05:44→21:48)
[2020-10-15 09:15] LABS: ABG HCO3 23 mmol/L (22-26); ABG PCO2 36 mmHg (35-45); ABG PH 7.41 (7.35-7.45); ABG PO2 87 mmHg (80-105); ABG TCO2 24
[2020-10-15] MEDS: EYE LUBRICANT OPTH OINT 3.5GM TUBE OP SCH (10:44)
[2020-10-15] MEDS: FUROSEMIDE INJ 10 MG/ML 4 ML VIAL IV SCH ×2 (10:44→21:11)
[2020-10-15] MEDS: ALBUMIN 25% 25GM 100ML 0.25 GM/ML BTL IV SCH ×2 (10:44→18:28)
[2020-10-15] MEDS: DOCUSATE SODIUM LIQD 100 MG/10 ML UDC NG SCH (10:44)
[2020-10-15] MEDS ORDERED: SODIUM CHLORIDE 0.9% 250ML 250 ML IV ONE (11:30)
[2020-10-15] MEDS: VANCOMYCIN HCL 1.5 GM in SODIUM CHLORIDE 0.9% 250ML 300 ML IV SCH ×2 (11:30→23:24)
[2020-10-15] MEDS: MIDAZOLAM HCL 5MG/ML 10ML VIAL 100 ML IV PRN ×2 (13:22→22:01)
[2020-10-15] MEDS ORDERED: SODIUM CHLORIDE 0.9% 250ML 250 ML ONE (15:59)
[2020-10-15] MEDS: FAMOTIDINE IV SCH (18:28)
[2020-10-15] MEDS ORDERED: VANCOMYCIN HCL 1.5 GM in SODIUM CHLORIDE 0.9% 250ML 300 ML IV SCH (21:00)
[2020-10-16] VITALS (14 sets, daily range): BP systolic 84–161; BP diastolic 47–69
[2020-10-16] MEDS: ALBUMIN 25% 25GM 100ML 0.25 GM/ML BTL IV SCH (02:52)
[2020-10-16 05:59] LABS: BASOPHILS # (AUTO) 0.1 (0.0-0.1); BASOPHILS % 0.3 % (0.0-1.0); EOSINOPHILS # (AUTO) 0.2 (0.0-0.4); EOSINOPHILS % 1.1 % (0.0-6.0); HEMATOCRIT 23.8 % (38.2-49.6); HEMOGLOBIN 7.4 g/dL (14.0-18.0); LYMPHOCYTES # (AUTO) 0.8 (1.0-3.2); LYMPHOCYTES % 4.5 % (18.0-39.1); MEAN CORPUSCULAR HEMOGLOBIN 25.9 pg (28-32); MEAN CORPUSCULAR HGB CONC 31.1 g/dL (31-35); MEAN CORPUSCULAR VOLUME 83.2 fL (81-99); MONOCYTES # (AUTO) 1.2 (0.2-0.8); MONOCYTES % 6.8 % (4.4-11.3); NEUTROPHILS # (AUTO) 15.1 (2.1-6.9); NEUTROPHILS % 84.5 % (38.7-80.0); PLATELET COUNT 307 x10e3/uL (140-360); RED BLOOD COUNT 2.86 x10e6/uL (4.3-5.7); RED CELL DISTRIBUTION WIDTH 16.4 % (11.7-14.4)
[2020-10-16 06:42] LABS: ALANINE AMINOTRANSFERASE 78 IU/L (0-55); ALBUMIN 1.9 g/dL (3.5-5.0); ALBUMIN/GLOBULIN RATIO 0.5 (0.8-2.0); ALKALINE PHOSPHATASE 209 IU/L (40-150); ANION GAP 14.6 mmol/L (8-16); BLOOD UREA NITROGEN 39 mg/dL (7-26); BUN/CREATININE RATIO 54 (6-25); CALCIUM 8.2 mg/dL (8.4-10.2); CARBON DIOXIDE 23 mmol/L (22-29); CHLORIDE 108 mmol/L (98-107); CREATININE, SERUM 0.72 mg/dL (0.72-1.25); EST GLOMERULAR FILTRATION RATE > 60 ML/MIN (60-); GLUCOSE 137 mg/dL (74-118); POTASSIUM 3.6 mmol/L (3.5-5.1); SODIUM 142 mmol/L (136-145)
[2020-10-16] MEDS: IBUPROFEN 400 MG TAB PO PRN (08:05)
[2020-10-16] MEDS: DOCUSATE SODIUM LIQD 100 MG/10 ML UDC NG SCH ×2 (08:05→10:20)
[2020-10-16] MEDS: FUROSEMIDE INJ 10 MG/ML 4 ML VIAL IV SCH (08:05)
[2020-10-16] MEDS: EYE LUBRICANT OPTH OINT 3.5GM TUBE OP SCH ×2 (08:05→10:20)
[2020-10-16] MEDS: FENTANYL 2000MCG/NS 250 250 ML IV PRN (08:13)
[2020-10-16] MEDS ORDERED: LORAZEPAM INJ 2 MG/ML VIAL IV PRN (09:15)
[2020-10-16] MEDS ORDERED: MORPHINE SULFATE INJ 2 MG/ML SYR IV PRN (09:15)
[2020-10-16] MEDS ORDERED: LORAZEPAM INJ 2 MG/ML VIAL IV ONE (10:00)
[2020-10-16] MEDS ORDERED: MORPHINE SULFATE INJ 4 MG/ML INJ 1ML IV ONE (10:00)
== END 2020-10-16 15:39 | disposition expired | DRG 4 ==
LOC: ER 14:46 → ERHOLD 18:01 → MED/SURG2 09-27 13:19 → IMCU 10-02 20:55 → ICU 10-03 16:54
PROVIDERS: ADMIT Internal Medicine; ATTEND Internal Medicine
PROC: 0BBJ8ZX Excision of Left Lower Lung Lobe, Via Natural or Artificial Opening Endoscopic, Diagnostic (ICD-10-PCS; 2020-09-28)
PROC: 5A1955Z Respiratory Ventilation, Greater than 96 Consecutive Hours (ICD-10-PCS; 2020-10-03)
PROC: 3E043XZ Introduction of Vasopressor into Central Vein, Percutaneous Approach (ICD-10-PCS; 2020-10-03)
PROC: 0BH17EZ Insertion of Endotracheal Airway into Trachea, Via Natural or Artificial Opening (ICD-10-PCS; 2020-10-03)
PROC: 02HV33Z Insertion of Infusion Device into Superior Vena Cava, Percutaneous Approach (ICD-10-PCS; 2020-10-03)
PROC: B548ZZA Ultrasonography of Superior Vena Cava, Guidance (ICD-10-PCS; 2020-10-03)
PROC: 0B110F4 Bypass Trachea to Cutaneous with Tracheostomy Device, Open Approach (ICD-10-PCS; principal; 2020-10-12 07:30)
DX: A41.9 Sepsis, unspecified organism (principal); J15.212 Pneumonia due to Methicillin resistant Staphylococcus aureus; J96.21 Acute and chronic respiratory failure with hypoxia; J96.22 Acute and chronic respiratory failure with hypercapnia; R65.21 Severe sepsis with septic shock; J98.11 Atelectasis; C34.32 Malignant neoplasm of lower lobe, left bronchus or lung; E87.1 Hypo-osmolality and hyponatremia; J44.1 Chronic obstructive pulmonary disease with (acute) exacerbation; C78.7 Secondary malignant neoplasm of liver and intrahepatic bile duct; E44.0 Moderate protein-calorie malnutrition; R00.0 Tachycardia, unspecified; Z87.891 Personal history of nicotine dependence; J84.89 Other specified interstitial pulmonary diseases; D63.8 Anemia in other chronic diseases classified elsewhere; R79.89 Other specified abnormal findings of blood chemistry; K59.00 Constipation, unspecified; Z66 Do not resuscitate
CPT/HCPCS: 31500; 31622; 36415; 36569; 36600; 71045; 71260; 74018; 76705; 80048; 80053; 80202; 82105; 82378; 82390; 82550; 82553; 82607; 82728; 82746; 82805; 83540; 83735; 83880; 83930; 83935; 84152; 84466; 84484; 85025; 85045; 85610; 85730; 86039; 86255; 86301; 86850; 86900; 86920; 87040; 87070; 87186; 87205; 87400; 87449; 88104; 88112; 88305; 88312; 88342; 93005; 93306; 94003; 94640; 96361; 99251; 99284; J0330; J0456; J0696; J1650; J1940; J2001; J2060; J2250; J2270; J2930; J3010; J3370; J7030; J7040; J7050; J7121; J7512; P9016; P9047; Q9967; U0002